=== PATIENT | female | born 1950 | race Caucasian/White ===

== ENCOUNTER 2020-02-27 17:18 | Inpatient (IN) | payer MEDICARE, OTHER ==
[2020-02-27 18:22] LABS: Hematocrit 43.3 % (35-47); Hemoglobin 13.8 gm/dl (12.0-16.0); Mean Cell Volume 97.1 fl (78-100); Mean Corpuscular Hemoglobin 30.9 pg (26-32); Mean Corpuscular Hgb Concent. 31.9 g/dl (32-36); Mean Platelet Volume 12.3 fl (7.5-11.0); Platelet Count 159 K/mm3 (150-450); Red Blood Count 4.46 M/mm3 (4.1-5.4); Red Cell Distribution Width 14.8 % (11.5-14.0)
[2020-02-27 18:28] LABS: ALBUMIN 3.5 g/dL (3.5-5.0); ALKALINE PHOSPHATASE 63 U/L (38-126); ANION GAP 13.7 MEQ/L (5-15); BLOOD UREA NITROGEN 19 mg/dL (7-17); CHLORIDE 97 mmol/L (98-107); Calcium 8.7 mg/dL (8.4-10.2); Carbon Dioxide 23 mmol/L (22-30); Creatinine 1 0.68 mg/dL (0.52-1.04); EST GLOMERULAR FILTRATION RATE > 60.0 ML/MIN; Glucose 135 mg/dL (74-106); Potassium 4.1 mmol/L (3.5-5.1); SGOT/AST 74 U/L (14-36); SGPT/ALT 23 U/L (0-35); SODIUM 129 mmol/L (137-145); Total Protein 6.5 g/dL (6.3-8.2)
[2020-02-27 20:06] LABS: ATYPICAL LYMPHS 2 %; BAND 2 % (0.0-2.0); Lymphocytes 17 % (24-44); Monocyte 10 % (0.0-12.0); Neutrophils 69 % (36.0-66.0); Platelet Estimate NORMAL (NORMAL); Total Cells Counted 100
--- NOTE | 2020-02-27 21:47 | XRAY ---
Exam: AP chest film on [facility] from 02/27/2020. Comparison: None. Indication: Covid-19 positive, shortness of breath. Findings: The transverse heart size is normal. Calcification of the aortic knob and mild tortuosity of the descending thoracic aorta are seen. There is average inflation of the lungs. Mild left perihilar and bibasilar hazy infiltrates are seen consistent with pneumonia. Respiratory tubing overlies the right upper lung field. There is no pneumothorax or pleural effusion. A small calcified granuloma is seen at the lateral right lung base. No acute osseous process is seen. Impression: 1. Hazy left perihilar and bibasilar air space infiltrates are seen consistent with bilateral pneumonia.
--- NOTE | 2020-02-27 22:00 | ERPHSYRPT ---
- History of Present Illness Time Seen by Provider: 02/27/20 17:30 Source: patient Exam Limitations: no limitations Patient Subjective Stated Complaint: pt here for sob, weakness, cough, she is covid postive last week, Triage Nursing Assessment: pt arrived per car, shaky, face mask in place, helped to wc, alert, resp shallow, dry cough, abd soft, pt placed on 2 l nc Physician History: Patient is a 69-year-old female, diagnosed with COVID last week presents to our ED with progressive shortness of breath cough and feeling "shaky". Patient hypoxic in triage. Patient admits to persistent cough. No fever. No nausea or vomiting. No diarrhea. No rash. Symptoms have been progressive. Patient has no chest pain. Symptoms are mild to moderate in intensity. No specific worsening or improving factors. Patient voices no other complaints or concerns at this time. Timing/Duration: week(s) Severity: moderate Modifying Factors: Improves With: nothing Associated Symptoms: shortness of breath, cough, No nausea, No vomiting, No heartburn, No diaphoresis, No chills, No headaches, No syncope, No seizure Allergies/Adverse Reactions: Sulfa (Sulfonamide Antibiotics) Allergy (Mild, Verified 02/27/20 17:35) Hives pt states really unknown meperidine HCl [From Demerol] Adverse Reaction (Mild, Verified 02/27/20 17:35) Nausea and Vomiting Home Medications: Aspirin 81 gm Chew [Baby Aspirin 81 mg Chew] 325 mg PO DAILY 12/13/14 [History] Calcium Carbonate/Vitamin D3 [Caltrate 600 + D Tablet] 1 each PO BID 12/13/14 [History] Denosumab 60 mg [Prolia 60 mg Injection] 60 mg SQ UD 12/13/14 [History] Lorazepam 1 mg [Ativan 1 MG] 1 mg PO HS 12/13/14 [History] Metformin HCl 500 mg [Glucophage 500 MG] 500 mg PO DAILY 12/13/14 [History] Quinapril HCl [Accupril] 40 mg PO DAILY 12/13/14 [History] Amlodipine Besylate 5 mg [Norvasc 5 mg] 5 mg PO DAILY 06/24/16 [History] Acetaminophen [Tylenol Extra Strength] 1,000 mg PO BID 12/23/16 [History] Simvastatin [Zocor] 10 mg PO HS 06/29/17 [History] Esomeprazole Magnesium [Nexium] 40 mg PO DAILY PRN 07/14/19 [History] Hx Influenza Vaccination/Date Given: Yes Hx Pneumococcal Vaccination/Date Given: Yes Immunizations Up to Date: Yes Travel Risk - International Travel Have you traveled outside of the country in past 3 weeks: No - Coronavirus Screening Are you exhibiting any of the following symptoms?: Yes Symptoms: Fever, Cough: New Onset, Shortness of Breath, Headaches/Body Ac hes/Fatigue Close contact with a COVID-19 positive Pt in past 14-21 Days: Yes - Review of Systems Constitutional: No Symptoms, No Fever, No Chills Eyes: No Symptoms Ears, Nose, & Throat: No Symptoms Respiratory: No Symptoms, No Cough, No Dyspnea Cardiac: No Symptoms, No Chest Pain, No Edema, No Syncope Abdominal/Gastrointestinal: No Symptoms, No Abdominal Pain, No Nausea, No Vomiting, No Diarrhea Genitourinary Symptoms: No Symptoms, No Dysuria Musculoskeletal: No Symptoms, No Back Pain, No Neck Pain Skin: No Symptoms, No Rash Neurological: No Symptoms, No Dizziness, No Focal Weakness, No Sensory Changes Psychological: No Symptoms Endocrine: No Symptoms Hematologic/Lymphatic: No Symptoms Immunological/Allergic: No Symptoms All Other Systems: Reviewed and Negative - Past Medical History Pertinent Past Medical History: Yes Neurological History: No Pertinent History ENT History: No Pertinent History Cardiac History: High Cholesterol, Hypertension Respiratory History: No Pertinent History Endocrine Medical History: Diabetes Type II Musculoskeletal History: Osteoarthritis GI Medical History: No Pertinent History History: No Pertinent History Psycho-Social History: No Pertinent History Female Reproductive Disorders: No Pertinent History Other Medical History: OA of B knees. spinal stenosis - Past Surgical History Past Surgical History: Yes Neuro Surgical History: No Pertinent History Cardiac: No Pertinent History Respiratory: No Pertinent History Gastrointestinal: Appendectomy Genitourinary: No Pertinent History Musculoskeletal: No Pertinent History Female Surgical History: No Pertinent History Other Surgical History: bilateral ingrown toenail both great toes. D&C. endoscopy colonoscopy. EGD. left total knee replacement - Social History Smoking Status: Never smoker Exposure to second hand smoke: No Drug Use: none Patient Lives Alone: No - Female History Hx Last Menstrual Period: post Hx Now: No - Nursing Vital Signs Nursing Vital Signs: Initial Vital Signs Temperature 98.4 F 02/27/20 17:19 Pulse Rate 75 02/27/20 17:19 Respiratory Rate 24 02/27/20 17:19 Blood Pressure 147/67 02/27/20 17:19 O2 Sat by Pulse Oximetry 89 L 02/27/20 17:19 Pain Scale Pain Intensity 3 - Physical Exam General Appearance: no apparent distress, alert Eye Exam: PERRL/EOMI, eyes nml inspection Ears, Nose, Throat Exam: normal ENT inspection, TMs normal, pharynx normal, moist mucous membranes Neck Exam: normal inspection, non-tender, supple, full range of motion Respiratory Exam: normal breath sounds, lungs clear, No respiratory distress Cardiovascular Exam: regular rate/rhythm, normal heart sounds, normal peripheral pulses Gastrointestinal/Abdomen Exam: soft, normal bowel sounds, No tenderness, No mass Back Exam: normal inspection, normal range of motion, No CVA tenderness, No vertebral tenderness Extremity Exam: normal inspection, normal range of motion, pelvis stable Neurologic Exam: alert, oriented x 3, cooperative, normal mood/affect, nml cerebellar function, nml station & gait, sensation nml, No motor deficits Skin Exam: normal color, warm, dry, No rash Lymphatic Exam: No adenopathy SpO2 Interpretation: hypoxic SpO2: 93 O2 Delivery: Room Air - Course Nursing assessment & vital signs reviewed: Yes EKG Interpreted by Me: RATE (72), NORMAL AXIS, NORMAL INTERVALS, NORMAL QRS (Poor quality EKG. EKG abnormal due to tremor back.), Other - Radiology Exams Chest X-ray Interpretation: Teleradiologist Report (Hazy left perihilar and bibasilar airspace infiltrates are seen consistent with bilateral pneumonia.) Ordered Tests: Active Orders 24 hr Category Date Time Status Resident Inspector STAT Care 02/27/20 18:18 Active EKG-ER Only STAT Care 02/27/20 18:18 Active IV Insertion STAT Care 02/27/20 18:18 Active Oxygen-ED Only Nasal Cannula 4 lpm Care 02/27/20 18:22 Active Pulse Oximetry (ED) STAT Care 02/27/20 18:18 Active CHEST 1 VIEW (PORTABLE) Stat Exams 02/27/20 18:16 Completed BLOOD CULTURE Stat Lab 02/27/20 22:09 Ordered BNP [NT PRO BNP] Stat Lab 02/27/20 22:07 Ordered CBC W DIFF Stat Lab 02/27/20 18:15 Completed CMP Stat Lab 02/27/20 18:15 Completed Lactic Acid Stat Lab 02/27/20 22:08 Ordered Manual Differential NC Stat Lab 02/27/20 18:15 Completed TROPONIN Q3H Lab 02/27/20 18:30 Completed TROPONIN Q3H Lab 02/27/20 22:00 Ordered Transfer Order Routine Transfer 02/27/20 Ordered Lab/Rad Data: Laboratory Result Diagrams 02/27/20 18:15 02/27/20 18:15 Laboratory Results 02/27/20 02/27/20 02/27/20 Range/Units 18:30 18:15 18:15 WBC 7.0 (4.0-10.5) K/mm3 RBC 4.46 (4.1-5.4) M/mm3 Hgb 13.8 (12.0-16.0) gm/dl Hct 43.3 (35-47) % MCV 97.1 (78-100) fl MCH 30.9 (26-32) pg MCHC 31.9 L (32-36) g/dl RDW 14.8 H (11.5-14.0) % Plt Count 159 (150-450) K/mm3 MPV 12.3 H (7.5-11.0) fl Segmented Neutrophils 69 H (36.0-66.0) % Band Neutrophils 2 (0.0-2.0) % Lymphocytes (Manual) 17 L (24-44) % Monocytes (Manual) 10 (0.0-12.0) % Atypical Lymphocytes 2 % Platelet Estimate NORMAL (NORMAL) RBC Morphology NORMAL Sodium 129 L (137-145) mmol/L Potassium 4.1 (3.5-5.1) mmol/L Chloride 97 L (98-107) mmol/L Carbon Dioxide 23 (22-30) mmol/L Anion Gap 13.7 (5-15) MEQ/L BUN 19 H (7-17) mg/dL Creatinine 0.68 (0.52-1.04) mg/dL Estimated GFR > 60.0 ML/MIN Glucose 135 H (74-106) mg/dL Calcium 8.7 (8.4-10.2) mg/dL Total Bilirubin 0.60 (0.2-1.3) mg/dL AST 74 H (14-36) U/L ALT 23 (0-35) U/L Alkaline Phosphatase 63 (38-126) U/L Troponin I 0.015 (0.000-0.034) ng/mL Serum Total Protein 6.5 (6.3-8.2) g/dL Albumin 3.5 (3.5-5.0) g/dL - Progress Progress: improved Progress Note: 02/27/20 22:15 Patient reassessed. She feels better after receiving nasal cannula oxygen. However upon removal patient immediately desaturates. Work-up reveals bilateral pneumonia likely due to COVID maintained. Case discussed with Dr. Thorne. Dr. Thorne requested adding BNP lactic acid and blood culture. These were added as requested. We will admit patient to the COVID unit for further evaluation and treatment. Plan of care discussed with patient. She agrees to admission to [facility] for further evaluation and treatment. Discussed with Dr.: Other (Case discussed with Dr. Thorne who accepts admission to observation.) Counseled pt/family regarding: lab results, diagnosis, need for follow-up, rad results - Departure Departure Disposition: In-patient Admission Clinical Impression: COVID-19, Hypoxia, Bilateral pneumonia Condition: Stable Critical Care Time: No Referrals: TAYLOR COLE [Primary Care Provider] -
[2020-02-27] MEDS ORDERED: REMDESIVIR IV ONE (23:13)
[2020-02-27] MEDS ORDERED: solu-MEDROL 125 MG IV ONE (23:14)
[2020-02-27] MEDS ORDERED: Ativan 2 MG/1 ML VIAL IV PRN (23:24)
[2020-02-27] MEDS ORDERED: TYLENOL 325 MG PO PRN (23:25)
[2020-02-27] MEDS ORDERED: Lactated Ringers 1,000 ML IV SCH (23:30)
[2020-02-27 23:43] LABS: TROPONIN 0.015 ng/mL (0.000-0.034)
[2020-02-27] MEDS ORDERED: Sodium Chloride 0.9% 250 ML 250 ML IV ONE (23:44)
[2020-02-27] MEDS ORDERED: REMDESIVIR 200 MG in Sodium Chloride 0.9% 500 ML 250 ML IV SCH (23:45)
[2020-02-28 06:10] LABS: Hemoglobin 12.5 gm/dl (12.0-16.0); Mean Cell Volume 97.5 fl (78-100); Mean Corpuscular Hemoglobin 31.3 pg (26-32); Mean Corpuscular Hgb Concent. 32.1 g/dl (32-36); Mean Platelet Volume 12.3 fl (7.5-11.0); Platelet Count 143 K/mm3 (150-450); Red Cell Distribution Width 14.6 % (11.5-14.0)
[2020-02-28 06:38] LABS: ALKALINE PHOSPHATASE 55 U/L (38-126); ANION GAP 11.1 MEQ/L (5-15); BLOOD UREA NITROGEN 16 mg/dL (7-17); CHLORIDE 99 mmol/L (98-107); Carbon Dioxide 22 mmol/L (22-30); EST GLOMERULAR FILTRATION RATE > 60.0 ML/MIN; Glucose 165 mg/dL (74-106); NT PRO BNP 1670 pg/mL (0-900); Potassium 4.1 mmol/L (3.5-5.1); SGOT/AST 73 U/L (14-36); SGPT/ALT 24 U/L (0-35); SODIUM 129 mmol/L (137-145); Total Protein 5.8 g/dL (6.3-8.2)
[2020-02-28 08:07] LABS: Lymphocytes 13 % (24-44); Neutrophils 87 % (36.0-66.0); Total Cells Counted 100
[2020-02-28 08:08] LABS: Platelet Estimate NORMAL (NORMAL)
[2020-02-28] MEDS ORDERED: Sodium Chloride 0.9% 10 ML FLUSH Syringe IV PRN (09:17)
[2020-02-28] MEDS: solu-MEDROL 125 MG IV SCH (09:24)
[2020-02-28] MEDS: Protonix 40MG Tablet PO SCH (09:25)
[2020-02-28] MEDS: Accupril 10MG Tablet PO SCH (09:25)
[2020-02-28] MEDS: ENOXAPARIN SODIUM SQ SCH (09:26)
[2020-02-28] MEDS: NORVASC 5 MG PO SCH (09:26)
[2020-02-28] MEDS: Glucophage 500 MG PO SCH (09:26)
[2020-02-28] MEDS ORDERED: REMDESIVIR IV SCH (10:00)
[2020-02-28] MEDS: TYLENOL EXTRA STRENGTH 500 MG PO SCH ×2 (11:39→21:01)
[2020-02-28] MEDS: Calcium 500MG W/Vit D Tablet PO SCH ×2 (12:46→21:01)
[2020-02-28] MEDS: Ecotrin 325 MG PO SCH (12:46)
[2020-02-28] MEDS: REMDESIVIR 100 MG in Sodium Chloride 0.9% 100 ML IVPB 100 ML IV SCH (15:02)
[2020-02-28] MEDS: Sodium Chloride 0.9% 10 ML FLUSH Syringe IV SCH ×2 (15:02→21:02)
[2020-02-28] MEDS: PHENERGAN WITH CODEINE SYRUP PO PRN ×2 (17:26→22:38)
[2020-02-28] MEDS: Zocor 10MG PO SCH (21:01)
[2020-02-28] MEDS: Ativan 1 MG PO SCH (21:01)
[2020-02-29 05:47] LABS: Hematocrit 40.4 % (35-47); Hemoglobin 12.7 gm/dl (12.0-16.0); Mean Cell Volume 98.3 fl (78-100); Mean Corpuscular Hemoglobin 30.9 pg (26-32); Mean Corpuscular Hgb Concent. 31.4 g/dl (32-36); Mean Platelet Volume 11.9 fl (7.5-11.0); Platelet Count 176 K/mm3 (150-450); Red Blood Count 4.11 M/mm3 (4.1-5.4); Red Cell Distribution Width 14.6 % (11.5-14.0); White Blood Count 6.4 K/mm3 (4.0-10.5)
[2020-02-29 06:04] LABS: ANION GAP 11.8 MEQ/L (5-15); BLOOD UREA NITROGEN 21 mg/dL (7-17); CHLORIDE 101 mmol/L (98-107); Calcium 8.2 mg/dL (8.4-10.2); Carbon Dioxide 25 mmol/L (22-30); Creatinine 1 0.66 mg/dL (0.52-1.04); EST GLOMERULAR FILTRATION RATE > 60.0 ML/MIN; Glucose 183 mg/dL (74-106); SODIUM 133 mmol/L (137-145)
[2020-02-29] MEDS: PHENERGAN WITH CODEINE SYRUP PO PRN ×4 (07:35→22:35)
[2020-02-29] MEDS: Sodium Chloride 0.9% 10 ML FLUSH Syringe IV SCH ×3 (07:58→22:46)
[2020-02-29] MEDS: TYLENOL EXTRA STRENGTH 500 MG PO SCH ×2 (09:48→22:34)
[2020-02-29] MEDS: NORVASC 5 MG PO SCH (09:49)
[2020-02-29] MEDS: Calcium 500MG W/Vit D Tablet PO SCH ×2 (09:49→22:34)
[2020-02-29] MEDS: Protonix 40MG Tablet PO SCH (09:49)
[2020-02-29] MEDS: Ecotrin 325 MG PO SCH (09:49)
[2020-02-29] MEDS: Accupril 10MG Tablet PO SCH (09:49)
[2020-02-29] MEDS: solu-MEDROL 125 MG IV SCH (09:50)
[2020-02-29] MEDS: ENOXAPARIN SODIUM SQ SCH (09:50)
[2020-02-29] MEDS: Glucophage 500 MG PO SCH (09:50)
[2020-02-29] MEDS ORDERED: Glucophage 500 MG PO SCH (10:00)
[2020-02-29] MEDS: REMDESIVIR 100 MG in Sodium Chloride 0.9% 100 ML IVPB 100 ML IV SCH (15:30)
[2020-02-29] MEDS: Ativan 1 MG PO SCH (22:34)
[2020-02-29] MEDS: Zocor 10MG PO SCH (22:34)
[2020-02-29] MEDS: HUMALOG SQ PRN (22:35)
[2020-03-01 05:36] LABS: Hemoglobin 12.7 gm/dl (12.0-16.0); Mean Cell Volume 100.2 fl (78-100); Mean Corpuscular Hemoglobin 31.1 pg (26-32); Mean Platelet Volume 11.6 fl (7.5-11.0); Platelet Count 207 K/mm3 (150-450); Red Blood Count 4.09 M/mm3 (4.1-5.4); Red Cell Distribution Width 14.4 % (11.5-14.0); White Blood Count 9.3 K/mm3 (4.0-10.5)
[2020-03-01] MEDS: PHENERGAN WITH CODEINE SYRUP PO PRN ×4 (06:00→22:07)
[2020-03-01 06:05] LABS: ANION GAP 10.7 MEQ/L (5-15); Potassium 4.1 mmol/L (3.5-5.1)
[2020-03-01] MEDS: Sodium Chloride 0.9% 10 ML FLUSH Syringe IV SCH ×3 (08:09→21:43)
[2020-03-01] MEDS: Glucophage 500 MG PO SCH (09:55)
[2020-03-01] MEDS: NORVASC 5 MG PO SCH (09:55)
[2020-03-01] MEDS: Accupril 10MG Tablet PO SCH (09:55)
[2020-03-01] MEDS: Ecotrin 325 MG PO SCH (09:55)
[2020-03-01] MEDS: Protonix 40MG Tablet PO SCH (09:55)
[2020-03-01] MEDS: TYLENOL EXTRA STRENGTH 500 MG PO SCH ×2 (09:55→21:43)
[2020-03-01] MEDS: solu-MEDROL 125 MG IV SCH (09:56)
[2020-03-01] MEDS: ENOXAPARIN SODIUM SQ SCH (09:56)
[2020-03-01] MEDS: Calcium 500MG W/Vit D Tablet PO SCH ×2 (09:56→21:43)
[2020-03-01] MEDS: REMDESIVIR 100 MG in Sodium Chloride 0.9% 100 ML IVPB 100 ML IV SCH (15:24)
[2020-03-01] MEDS: Ativan 1 MG PO SCH (21:43)
[2020-03-01] MEDS: Zocor 10MG PO SCH (21:44)
[2020-03-01] MEDS: HUMALOG SQ PRN (22:09)
[2020-03-02] MEDS: PHENERGAN WITH CODEINE SYRUP PO PRN ×2 (05:41→10:05)
[2020-03-02 06:14] LABS: SGOT/AST 42 U/L (14-36); SGPT/ALT 29 U/L (0-35)
[2020-03-02] MEDS: Sodium Chloride 0.9% 10 ML FLUSH Syringe IV SCH ×3 (07:52→21:38)
[2020-03-02] MEDS: ENOXAPARIN SODIUM SQ SCH (09:55)
[2020-03-02] MEDS: Calcium 500MG W/Vit D Tablet PO SCH ×2 (09:55→21:15)
[2020-03-02] MEDS: Ecotrin 325 MG PO SCH (09:55)
[2020-03-02] MEDS: Glucophage 500 MG PO SCH (09:56)
[2020-03-02] MEDS: NORVASC 5 MG PO SCH (09:56)
[2020-03-02] MEDS: Protonix 40MG Tablet PO SCH (09:57)
[2020-03-02] MEDS: Accupril 10MG Tablet PO SCH (09:57)
[2020-03-02] MEDS: TYLENOL EXTRA STRENGTH 500 MG PO SCH ×2 (09:57→21:15)
[2020-03-02] MEDS: solu-MEDROL 125 MG IV SCH (09:57)
[2020-03-02] MEDS: REMDESIVIR 100 MG in Sodium Chloride 0.9% 100 ML IVPB 100 ML IV SCH (14:58)
[2020-03-02] MEDS: HUMALOG SQ PRN ×2 (17:30→21:40)
[2020-03-02] MEDS: Zocor 10MG PO SCH (21:15)
[2020-03-02] MEDS: Ativan 1 MG PO SCH (21:15)
[2020-03-03] MEDS: Sodium Chloride 0.9% 10 ML FLUSH Syringe IV SCH ×3 (06:18→21:37)
[2020-03-03] MEDS: NORVASC 5 MG PO SCH (10:13)
[2020-03-03] MEDS: TYLENOL EXTRA STRENGTH 500 MG PO SCH ×2 (10:13→21:37)
[2020-03-03] MEDS: Ecotrin 325 MG PO SCH (10:14)
[2020-03-03] MEDS: Protonix 40MG Tablet PO SCH (10:15)
[2020-03-03] MEDS: Accupril 10MG Tablet PO SCH (10:15)
[2020-03-03] MEDS: Glucophage 500 MG PO SCH (10:15)
[2020-03-03] MEDS: solu-MEDROL 125 MG IV SCH (10:15)
[2020-03-03] MEDS: Calcium 500MG W/Vit D Tablet PO SCH ×2 (10:15→21:36)
[2020-03-03] MEDS: ENOXAPARIN SODIUM SQ SCH (10:15)
[2020-03-03] MEDS: PHENERGAN WITH CODEINE SYRUP PO PRN ×2 (10:34→21:38)
[2020-03-03] MEDS ORDERED: SENOKOT 8.6 MG PO PRN (10:55)
[2020-03-03] MEDS: LACTULOSE 20 GM/30ML UD CUP PO SCH (11:32)
[2020-03-03] MEDS: HUMALOG SQ PRN ×2 (17:11→21:37)
[2020-03-03] MEDS: Ativan 1 MG PO SCH (21:36)
[2020-03-03] MEDS: Zocor 10MG PO SCH (21:37)
[2020-03-04] MEDS: PHENERGAN WITH CODEINE SYRUP PO PRN (04:38)
[2020-03-04] MEDS: Sodium Chloride 0.9% 10 ML FLUSH Syringe IV SCH (04:38)
[2020-03-04 08:02] LABS: Hematocrit 41.9 % (35-47); Hemoglobin 13.4 gm/dl (12.0-16.0); Mean Cell Volume 98.1 fl (78-100); Mean Corpuscular Hemoglobin 31.4 pg (26-32); Mean Platelet Volume 10.8 fl (7.5-11.0); Platelet Count 291 K/mm3 (150-450); Red Blood Count 4.27 M/mm3 (4.1-5.4); Red Cell Distribution Width 13.9 % (11.5-14.0)
[2020-03-04 08:13] LABS: ANION GAP 8.6 MEQ/L (5-15); BLOOD UREA NITROGEN 23 mg/dL (7-17); CHLORIDE 102 mmol/L (98-107); Calcium 8.7 mg/dL (8.4-10.2); Carbon Dioxide 30 mmol/L (22-30); Creatinine 1 0.58 mg/dL (0.52-1.04); EST GLOMERULAR FILTRATION RATE > 60.0 ML/MIN; Glucose 121 mg/dL (74-106); Potassium 3.9 mmol/L (3.5-5.1); SODIUM 137 mmol/L (137-145)
--- NOTE | 2020-03-04 09:26 | XRAY ---
Indication: Short of breath and cough. Positive Covid 19. Comparison: February 27, 2020. Portable chest again demonstrates patchy bilateral airspace disease again without consolidation/large effusion. Very minimal clearing seen right base. Heart is not enlarged. No new cardiopulmonary abnormalities.
[2020-03-04] MEDS: TYLENOL EXTRA STRENGTH 500 MG PO SCH (09:48)
[2020-03-04] MEDS: Calcium 500MG W/Vit D Tablet PO SCH (09:48)
[2020-03-04] MEDS: Protonix 40MG Tablet PO SCH (09:48)
[2020-03-04] MEDS: Accupril 10MG Tablet PO SCH (09:48)
[2020-03-04] MEDS: Glucophage 500 MG PO SCH (09:48)
[2020-03-04] MEDS: Ecotrin 325 MG PO SCH (09:48)
[2020-03-04] MEDS: LACTULOSE 20 GM/30ML UD CUP PO SCH (09:49)
[2020-03-04] MEDS: NORVASC 5 MG PO SCH (09:49)
[2020-03-04] MEDS: ENOXAPARIN SODIUM SQ SCH (09:49)
[2020-03-04] MEDS: solu-MEDROL 125 MG IV SCH (09:50)
[2020-03-04 11:38] VITALS: BP 139/75; PULSE 59; O2SAT 94
--- NOTE | 2020-03-04 14:30 | HP ---
CHIEF COMPLAINT: Severe shortness of breath, fever, non-COVID. HISTORY OF PRESENT ILLNESS: The patient is a 69 year old white female who had been in earlier and tested positive for COVID. She is short of breath and instructed to get an O2 monitor by someone and O2 saturations were in the high 70's. She was then brought to the emergency room. She has had COVID since 02/19/2020 or 02/20/2020. She had no diarrhea. No nausea or vomiting. No fever. No chest pain. Just severe shortness of breath which has progressively gotten worse. MEDICATIONS: Tylenol PRN, potassium 500 q.d,, insulin 10 units h.s., Norvasc 5 q.d., Protonix q.d. ALLERGIES: SULFA. DEMEROL. PHYSICAL EXAMINATION: The patient is alert, orientated, short of breath and now in physical distress. Respiratory rate 30, temperature 99F, pulse 110. HEENT: Pupils equal and reactive to light. NECK: Supple without adenopathy. CHEST: Wheezing bilateral. CVS: Tachycardic. No murmurs or gallops. EXTREMITIES: Lower extremities the patient has severe degenerative changes both legs, some peripheral large veins. History of recent right knee replacement. IMPRESSION/PLAN: The patient on chest x-ray has bilateral infiltrates. It looks like COVID pneumonia with a normal white count, mildly febrile, hypoxic without 4 liters of oxygen. She will be started on Decadron, Remdesivir and O2, labs to be followed. She will be watched carefully tonight. Decisions will be made in the morning. PROGNOSIS: Guarded.
--- NOTE | 2020-03-18 10:53 | DS ---
ADMISSION DIAGNOSES: 1) COVID pneumonia. 2) Hypoxia. 3) Degenerative arthritis of the knees. 4) Obesity. 5) Hypertension. 6) Diabetes mellitus. 7) Gastroesophageal reflux disease. DISCHARGE DIAGNOSES: 1) COVID PNEUMONIA. 2) HYPOXIA. 3) DEGENERATIVE ARTHRITIS OF THE KNEES. 4) OBESITY. 5) HYPERTENSION. 6) DIABETES MELLITUS. 7) GASTROESOPHAGEAL REFLUX DISEASE. HISTORY: The patient is a 69 year old white female who is usually fairly healthy except for arthritis of the knees. She has been in quarantine for the last three months, does not go out of the house. Pretty much afraid of COVID. She started running a fever and became short of breath. She was brought to the emergency room and diagnosed with COVID and sent home. She became extremely hypoxic in the 70's and her brought her back into emergency room. She has had COVID since February 18 or . She has had no diarrhea, nausea or vomiting. MEDICATIONS: Medications before admission were: Tylenol, potassium, insulin 10 units of Levemir h.s., Norvasc 5 and Protonix. ALLERGIES: SULFA. MEPERIDINE. PHYSICAL EXAMINATION: On discharge showed that she has markedly improved. She is alert, orientated, very pleasant, educated woman. HEENT: Normal. CHEST: Few crackles. CVS: Irregular/irregular beat. No murmurs. ABDOMEN: Obese. No tenderness or organomegaly. EXTREMITIES: Varicose veins, trace edema. HOSPITAL COURSE: The patient the first night was rather exciting. She was on 6 liters to keep her O2 above low 80's. However, when the Decadron and Remdesivir seemed to kick in she gradually improved. She was put on Lovenox prophylactically since she was not getting up the first few days. She was continued on home medications. CBC and electrolytes on 03/02/2020 were normal. She ran fever off and on but that was gone the last four days. She was stable enough to be discharged to be discharged on 03/04/2020 after six days of treatment. She was sitting in a chair walking about with no severe problems. She is on O2 at 2 liters. She is to have home health care, oxygen at 2 liters or 3 liters if needed. She has a phone numbers to call if she any questions. Stay in isolation although really she has had the disease now for two weeks. She may have residual from the bilateral COVID pneumonia. PROGNOSIS: Good. ADDENDUM: The patient ten days after discharge had pulmonary emboli and is in [facility] at this time.
== END 2020-03-04 13:50 | disposition home or self-care (01) | DRG 177 ==
LOC: ED 17:18 → MED SURG 22:53 → OBSVTOIN 22:53
PROVIDERS: ADMIT Family Medicine; ATTEND Family Medicine
DX: U07.1 COVID-19 (principal); J12.89 Other viral pneumonia; E87.1 Hypo-osmolality and hyponatremia; R53.1 Weakness; Z79.899 Other long term (current) drug therapy; R51 Headache; I10 Essential (primary) hypertension; E78.00 Pure hypercholesterolemia, unspecified; M17.0 Bilateral primary osteoarthritis of knee; E86.0 Dehydration; E11.9 Type 2 diabetes mellitus without complications; R09.02 Hypoxemia; Z86.718 Personal history of other venous thrombosis and embolism; E66.01 Morbid (severe) obesity due to excess calories; K21.9 Gastro-esophageal reflux disease without esophagitis
CPT/HCPCS: 36000; 36415; 71045; 80048; 80051; 80053; 82962; 83605; 83880; 84450; 84460; 84484; 85025; 85027; 87040; 93005; 93041; 94760; 94762; 99284; J1650; J1817; J2060; J2930; A9270-GY

== ENCOUNTER 2020-03-14 14:27 | Emergency (ER) | payer MEDICARE, OTHER ==
[2020-03-14] MEDS ORDERED: Sodium Chloride 0.9% 1000 ML 1,000 ML IV STA (14:44)
[2020-03-14] MEDS ORDERED: Sodium Chloride 0.9% 1000 ML 0 ML ONE (14:45)
[2020-03-14] MEDS ORDERED: DECADRON 10MG INJ. ONE (14:45)
[2020-03-14] MEDS ORDERED: DECADRON 10MG INJ. IV ONE (14:45)
[2020-03-14] MEDS ORDERED: Zofran 4 MG/2 ML VIAL IV ONE (14:52)
[2020-03-14] MEDS ORDERED: Zofran 4 MG/2 ML VIAL ONE (14:53)
--- NOTE | 2020-03-14 14:55 | ERPHSYRPT ---
- History of Present Illness Time Seen by Provider: 03/14/20 14:40 Source: patient Exam Limitations: clinical condition Patient Subjective Stated Complaint: Pt states "I was released a week ago from the covid unit and today I fell and I am not sure if I lost consciousness or not." Triage Nursing Assessment: Pt presented alert and oriented X 3, skin pwd. pt able to speak in 3 to 4 word sentences pt tachypneic, on non rebreather Physician History: Patient is a 69-year-old female COVID positive patient presents to our ED via EMS for evaluation of syncope shortness of breath and hypoxia. Patient was diagnosed with COVID 18 days ago on February 25, 2020. Family reports that patient was found on the ground. The duration of time on the ground is unknown. Upon EMSs arrival patient was found to be hypoxic at 80%. She was placed on a nonrebreather at 15 L. O2 sat increased to 93%. Patient was tachypneic and tachycardic. Patient was released from our COVID unit approximately 1 week ago. She was prescribed home O2. Patient has been using her oxygen at home as recommended. Recommended dose is 2 L/min. She denies pain. No obvious signs of trauma. HPI limited due to patient's condition. Symptoms are moderate in intensity. No specific worsening or improving factors. Patient voices no other complaints at this time. Timing/Duration: today Severity: moderate Modifying Factors: Improves With: nothing Associated Symptoms: nausea, shortness of breath, diaphoresis, syncope, No vomiting, No abdominal pain, No chest pain, No rash Allergies/Adverse Reactions: Sulfa (Sulfonamide Antibiotics) Allergy (Mild, Verified 02/27/20 17:35) Hives pt states really unknown meperidine HCl [From Demerol] Adverse Reaction (Mild, Verified 02/27/20 17:35) Nausea and Vomiting Home Medications: Aspirin 81 gm Chew [Baby Aspirin 81 mg Chew] 325 mg PO DAILY 12/13/14 [History] Calcium Carbonate/Vitamin D3 [Caltrate 600 Plus D3 Tablet] 1 each PO BID 5 [History] Denosumab 60 mg [Prolia 60 mg Injection] 60 mg SQ UD 12/13/14 [History] Lorazepam 1 mg [Ativan 1 MG] 1 mg PO HS 12/13/14 [History] Metformin HCl 500 mg [Glucophage 500 MG] 500 mg PO DAILY 12/13/14 [History] Quinapril HCl [Accupril] 40 mg PO DAILY 12/13/14 [History] Amlodipine Besylate 5 mg [Norvasc 5 mg] 5 mg PO DAILY 06/24/16 [History] Acetaminophen [Tylenol Extra Strength] 1,000 mg PO BID 12/23/16 [History] Simvastatin [Zocor] 10 mg PO HS 06/29/17 [History] Esomeprazole Magnesium [Nexium] 40 mg PO DAILY PRN 07/14/19 [History] Hx Tetanus, Diphtheria Vaccination/Date Given: Yes Hx Influenza Vaccination/Date Given: Yes Hx Pneumococcal Vaccination/Date Given: Yes Immunizations Up to Date: Yes Travel Risk - International Travel Have you traveled outside of the country in past 3 weeks: No - Coronavirus Screening Are you exhibiting any of the following symptoms?: Yes Symptoms: Fever, Shortness of Breath Close contact with a COVID-19 positive Pt in past 14-21 Days: Yes - Review of Systems All Other Systems: Unable due to condition - Past Medical History Pertinent Past Medical History: Yes Neurological History: No Pertinent History ENT History: No Pertinent History Cardiac History: High Cholesterol, Hypertension Respiratory History: No Pertinent History Endocrine Medical History: Diabetes Type II Musculoskeletal History: Osteoarthritis GI Medical History: No Pertinent History History: No Pertinent History Psycho-Social History: No Pertinent History Female Reproductive Disorders: No Pertinent History Other Medical History: OA of B knees. spinal stenosis - Past Surgical History Past Surgical History: Yes Neuro Surgical History: No Pertinent History Cardiac: No Pertinent History Respiratory: No Pertinent History Gastrointestinal: Appendectomy Genitourinary: No Pertinent History Musculoskeletal: No Pertinent History Female Surgical History: No Pertinent History Other Surgical History: bilateral ingrown toenail both great toes. D&C. endoscopy colonoscopy. EGD. left total knee replacement - Social History Smoking Status: Never smoker Exposure to second hand smoke: No Drug Use: none Patient Lives Alone: No - Nursing Vital Signs Nursing Vital Signs: Initial Vital Signs Temperature 97.9 F 03/14/20 14:32 Pulse Rate 129 H 03/14/20 14:32 Respiratory Rate 28 H 03/14/20 14:32 Blood Pressure 90/60 03/14/20 14:32 O2 Sat by Pulse Oximetry 94 L 03/14/20 14:32 Pain Scale Pain Intensity 0 - Physical Exam General Appearance: no apparent distress, alert Eye Exam: PERRL/EOMI, eyes nml inspection Ears, Nose, Throat Exam: normal ENT inspection, TMs normal, pharynx normal, moist mucous membranes Neck Exam: normal inspection, non-tender, supple, full range of motion Respiratory Exam: normal breath sounds, respiratory distress, airway intact, diminished breath sounds, wheezing (Expiratory wheezing bilateral bases.) Cardiovascular Exam: regular rate/rhythm, normal heart sounds, normal peripheral pulses Gastrointestinal/Abdomen Exam: soft, normal bowel sounds, No tenderness, No mass Back Exam: normal inspection, normal range of motion, No CVA tenderness, No vertebral tenderness Extremity Exam: normal range of motion, pedal edema, swelling, No pelvis stable, No amputations, No calf tenderness, No penetrations, No parasthesia, No paralysis, No limited range of motion Neurologic Exam: alert, oriented x 3, cooperative, cw operator II-XII nml as tested Skin Exam: normal color, warm, dry, No rash Lymphatic Exam: No adenopathy SpO2 Interpretation: hypoxic SpO2: 94 O2 Delivery: Room Air - Course Nursing assessment & vital signs reviewed: Yes EKG Interpreted by Me: RATE, A-fib, NORMAL AXIS, NORMAL INTERVALS - Radiology Exams Chest X-ray Interpretation: Teleradiologist Report (Patchy bilateral airspace disease minimally improved in the right mid to upper lung with remaining lungs unchanged. Heart mediastinal structures within normal limits. No new cardiopulmonary abnormalities.) - CT Exams Head CT Interpretation: Tele-radiologist Report (Acute senile brain. Partial op acification of left mastoid air cells presumably inflammatory.) Chest CT Interpretation: Tele-radiologist Report (7 bilateral pulmonary emboli, diffuse bilateral patchy airspace disease without consolidation/effusion, incidental fatty liver and left renal cyst.) Ordered Tests: Active Orders 24 hr Category Date Time Status Knot Borer STAT Care 03/14/20 14:39 Completed EKG-ER Only STAT Care 03/14/20 14:38 Completed [place] [Catheter-[place]] STAT Care 03/14/20 15:00 Completed IV Insertion STAT Care 03/14/20 14:38 Completed CHEST 1 VIEW (PORTABLE) Stat Exams 03/14/20 14:40 Completed CHEST WITH CONTRAST [CT] Stat Exams 03/14/20 16:01 Completed HEAD WITHOUT CONTRAST [CT] Stat Exams 03/14/20 16:00 Completed ARTERIAL BLOOD GASES Urgent Lab 03/14/20 14:55 Completed BLOOD CULTURE Stat Lab 03/14/20 14:51 Received CBC W DIFF Stat Lab 03/14/20 14:51 Completed CK-Creatinine Phosphokinase Stat Lab 03/14/20 14:51 Completed CMP Stat Lab 03/14/20 14:51 Completed CULTURE,URINE Stat Lab 03/14/20 16:57 Received D-DIMER QUANTITATIVE Stat Lab 03/14/20 14:51 Completed ETHYL ALCOHOL Stat Lab 03/14/20 14:51 Completed Lactic Acid Stat Lab 03/14/20 14:55 Completed Lactic Acid Stat Lab 03/14/20 17:03 Completed MAGNESIUM Stat Lab 03/14/20 14:51 Completed Manual Differential NC Stat Lab 03/14/20 14:51 Completed NT PRO BNP Stat Lab 03/14/20 14:51 Completed TROPONIN Q3H Lab 03/14/20 14:51 Completed TROPONIN Q3H Lab 03/14/20 18:00 Completed UA W/RFX UR CULTURE Stat Lab 03/14/20 16:57 Completed Urine Triage Profile Stat Lab 03/14/20 17:00 Completed Oxygen High Flow per RT 35% RT 03/14/20 15:30 Completed Medication Summary Discontinued Medications Generic Name Dose Route Start Last Admin Trade Name Freq PRN Reason Stop Dose Admin Dexamethasone Sodium Phosphate 8 mg 03/14/20 14:45 03/14/20 14:47 Decadron 10mg Inj. IV 03/14/20 14:46 8 mg STAT ONE Administration Dexamethasone Sodium Phosphate Confirm 03/14/20 14:45 Decadron 10mg Inj. Administered 03/14/20 14:46 Dose 10 mg .ROUTE .STK-MED ONE Heparin Sodium (Beef Lung) Confirm 03/14/20 17:03 Heparin 5000 Units/0.5 Ml (High Risk Med) Administered 03/14/20 17:04 Dose 5,000 unit .ROUTE .STK-MED ONE Hydrocortisone Sodium Succinate 100 mg 03/14/20 17:28 03/14/20 17:33 Solu-Cortef 100mg IV 03/14/20 17:29 Not Given STAT ONE Sodium Chloride 1,000 mls @ 999 mls/hr 03/14/20 14:44 08/27/20 15:53 Sodium Chloride 0.9% 1000 Ml IV 03/14/20 15:44 Infused .Q1H1M STA Infusion Sodium Chloride Confirm 03/14/20 14:45 Sodium Chloride 0.9% 1000 Ml Administered 03/14/20 14:46 Dose 1,000 mls @ ud .ROUTE .STK-MED ONE Vancomycin HCl 1 gm in 200 mls @ 125 mls/hr 03/14/20 16:15 03/14/20 18:54 Vancomycin 1 Gram/200 Ml Bag IV 04/13/20 16:14 Infused Q12H MIKE Infusion Piperacillin Sod/Tazobactam 100 mls @ 200 mls/hr 03/14/20 16:11 03/14/20 16:55 Sod 3.375 gm/ Sodium Chloride IV 03/14/20 16:40 200 mls/hr STAT ONE Administration Sodium Chloride Confirm 03/14/20 16:29 Sodium Chloride 100ml Mini-Bag Plus Administered 03/14/20 16:30 Dose 100 mls @ ud IV .STK-MED ONE Sodium Chloride Confirm 03/14/20 17:04 Sodium Chloride 0.9% 1000 Ml Administered 03/14/20 17:05 Dose 1,000 mls @ ud .ROUTE .STK-MED ONE Heparin Sodium/Dextrose Confirm 03/14/20 17:04 Heparin 25,000 Units/D5w 250ml Premix Administered 03/14/20 17:05 Dose 25,000 units in 250 mls @ ud IV .STK-MED ONE Norepinephrine 4,000 mcg/ 504 mls @ 37.8 mls/hr 03/14/20 17:29 03/14/20 17:38 Dextrose IV 04/13/20 17:28 5 mcg/min .[id number] PRN 37.8 mls/hr SEVERE HYPOTENSION Administration Protocol 5 MCG/MIN Sodium Chloride 1,000 mls @ 100 mls/hr 03/14/20 19:30 03/14/20 19:28 Sodium Chloride 0.9% 1000 Ml IV 04/13/20 19:29 100 mls/hr .Q10H MIKE Administration Vancomycin HCl Confirm 03/14/20 16:29 Vancomycin 1 Gram/200 Ml Bag Administered 03/14/20 16:30 Dose 1 gm in 200 mls @ ud IV .STK-MED ONE Sodium Chloride Confirm 03/14/20 19:26 Sodium Chloride 0.9% 1000 Ml Administered 03/14/20 19:27 Dose 1,000 mls @ ud .ROUTE .STK-MED ONE Ondansetron HCl 4 mg 03/14/20 14:52 03/14/20 14:53 Zofran 4 Mg/2 Ml Vial IV 03/14/20 14:53 4 mg STAT ONE Administration Ondansetron HCl Confirm 03/14/20 14:53 Zofran 4 Mg/2 Ml Vial Administered 03/14/20 14:54 Dose 4 mg .ROUTE .STK-MED ONE Piperacillin Sod/Tazobactam Sod Confirm 03/14/20 16:28 Zosyn 3.375 Gm Vial Administered 03/14/20 16:29 Dose 3.375 gm IV .STK-MED ONE Lab/Rad Data: Laboratory Result Diagrams 03/14/20 14:51 03/14/20 14:51 Laboratory Results 03/14/20 03/14/20 03/14/20 Range/Units 18:00 17:03 17:00 WBC (4.0-10.5) K/mm3 RBC (4.1-5.4) M/mm3 Hgb (12.0-16.0) gm/dl Hct (35-47) % MCV (78-100) fl MCH (26-32) pg MCHC (32-36) g/dl RDW (11.5-14.0) % Plt Count (150-450) K/mm3 MPV (7.5-11.0) fl Segmented Neutrophils (36.0-66.0) % Band Neutrophils (0.0-2.0) % Lymphocytes (Manual) (24-44) % Monocytes (Manual) (0.0-12.0) % Eosinophils (Manual) (0.00-3.0) % Platelet Estimate (NORMAL) RBC Morphology D-Dimer (215-500) ng/mL Puncture Site pCO2 (35-45) mmHg pO2 (75-100) mmHg Base Excess (-2.0-2.0) O2 Saturation (94-100) g/dF ABG pH (7.35-7.45) ABG HCO3 (22-28) ABG O2 Sat (Measured) (95-100) % Justin Test A-a Gradient a/A Ratio Hemoglobin Carboxyhemoglobin (0.0-6.9) % THgb Methemoglobin (1.4-1.5) % Temperature C POC O2 Flow Rate % Sodium (137-145) mmol/L Potassium (3.5-5.1) mmol/L Chloride (98-107) mmol/L Carbon Dioxide (22-30) mmol/L Anion Gap (5-15) MEQ/L BUN (7-17) mg/dL Creatinine (0.52-1.04) mg/dL Estimated GFR ML/MIN Glucose (74-106) mg/dL Lactic Acid 2.8 H (0.4-2.0) Calcium (8.4-10.2) mg/dL Magnesium (1.6-2.3) mg/dL Total Bilirubin (0.2-1.3) mg/dL AST (14-36) U/L ALT (0-35) U/L Alkaline Phosphatase (38-126) U/L Creatine Kinase (30-135) U/L Troponin I 0.196 H* (0.000-0.034) ng/mL NT-Pro-B Natriuret Pep (0-900) pg/mL Serum Total Protein (6.3-8.2) g/dL Albumin (3.5-5.0) g/dL Urine Color (YELLOW) Urine Appearance (CLEAR) Urine pH (5-6) Ur Specific [place] (1.005-1.025) Urine Protein (Negative) Urine Ketones (NEGATIVE) Urine Blood (0-5) Rishi/ul Urine Nitrite (NEGATIVE) Urine Bilirubin (NEGATIVE) Urine Urobilinogen (0-1) mg/dL Ur Leukocyte Esterase (NEGATIVE) Urine WBC (Auto) (0-5) /HPF Urine RBC (Auto) (0-2) /HPF U Epithel Cells (Auto) (FEW) /HPF Urine Bacteria (Auto) (NEGATIVE) /HPF Urine Mucus (Auto) (NEGATIVE) /HPF Urine Culture Reflexed (NO) Urine Glucose (NEGATIVE) mg/dL Urine Opiates Level NEGATIVE (NEGATIVE) Ur Methadone NEGATIVE (NEGATIVE) Urine Barbiturates NEGATIVE (NEGATIVE) Ur Phencyclidine (PCP) NEGATIVE (NEGATIVE) Urine Amphetamine NEGATIVE (NEGATIVE) U Benzodiazepine Level NEGATIVE (NEGATIVE) Urine Cocaine NEGATIVE (NEGATIVE) Urine Marijuana (THC) NEGATIVE (NEGATIVE) Ethyl Alcohol (0-10) mg/dL 08/27/20 08/27/20 08/27/20 Range/Units 16:57 14:55 14:55 WBC (4.0-10.5) K/mm3 RBC (4.1-5.4) M/mm3 Hgb (12.0-16.0) gm/dl Hct (35-47) % MCV (78-100) fl MCH (26-32) pg MCHC (32-36) g/dl RDW (11.5-14.0) % Plt Count (150-450) K/mm3 MPV (7.5-11.0) fl Segmented Neutrophils (36.0-66.0) % Band Neutrophils (0.0-2.0) % Lymphocytes (Manual) (24-44) % Monocytes (Manual) (0.0-12.0) % Eosinophils (Manual) (0.00-3.0) % Platelet Estimate (NORMAL) RBC Morphology D-Dimer (215-500) ng/mL Puncture Site LEFT RADIAL pCO2 36 (35-45) mmHg pO2 65 L (75-100) mmHg Base Excess -6.2 L (-2.0-2.0) O2 Saturation 90.7 L (94-100) g/dF ABG pH 7.33 L (7.35-7.45) ABG HCO3 19.0 L (22-28) ABG O2 Sat (Measured) 92.5 L (95-100) % Justin Test YES A-a Gradient 603 a/A Ratio 0.10 Hemoglobin 14.3 Carboxyhemoglobin 1.2 (0.0-6.9) % THgb Methemoglobin 0.7 L (1.4-1.5) % Temperature 37.0 C POC O2 Flow Rate 100 % Sodium (137-145) mmol/L Potassium 4.4 (3.5-5.1) mmol/L Chloride (98-107) mmol/L Carbon Dioxide (22-30) mmol/L Anion Gap (5-15) MEQ/L BUN (7-17) mg/dL Creatinine (0.52-1.04) mg/dL Estimated GFR ML/MIN Glucose (74-106) mg/dL Lactic Acid 10.0 H (0.4-2.0) Calcium (8.4-10.2) mg/dL Magnesium (1.6-2.3) mg/dL Total Bilirubin (0.2-1.3) mg/dL AST (14-36) U/L ALT (0-35) U/L Alkaline Phosphatase (38-126) U/L Creatine Kinase (30-135) U/L Troponin I (0.000-0.034) ng/mL NT-Pro-B Natriuret Pep (0-900) pg/mL Serum Total Protein (6.3-8.2) g/dL Albumin (3.5-5.0) g/dL Urine Color EDOUARD (YELLOW) Urine Appearance CLOUDY (CLEAR) Urine pH 5.0 (5-6) Ur Specific [place] 1.021 (1.005-1.025) Urine Protein >=500 (Negative) Urine Ketones NEGATIVE (NEGATIVE) Urine Blood SMALL (0-5) Rishi/ul Urine Nitrite NEGATIVE (NEGATIVE) Urine Bilirubin NEGATIVE (NEGATIVE) Urine Urobilinogen 2 (0-1) mg/dL Ur Leukocyte Esterase NEGATIVE (NEGATIVE) Urine WBC (Auto) 11-15 (0-5) /HPF Urine RBC (Auto) 3-5 (0-2) /HPF U Epithel Cells (Auto) RARE (FEW) /HPF Urine Bacteria (Auto) MODERATE (NEGATIVE) /HPF Urine Mucus (Auto) SLIGHT (NEGATIVE) /HPF Urine Culture Reflexed YES (NO) Urine Glucose >=500 (NEGATIVE) mg/dL Urine Opiates Level (NEGATIVE) Ur Methadone (NEGATIVE) Urine Barbiturates (NEGATIVE) Ur Phencyclidine (PCP) (NEGATIVE) Urine Amphetamine (NEGATIVE) U Benzodiazepine Level (NEGATIVE) Urine Cocaine (NEGATIVE) Urine Marijuana (THC) (NEGATIVE) Ethyl Alcohol (0-10) mg/dL 03/14/20 03/14/20 03/14/20 Range/Units 14:51 14:51 14:51 WBC (4.0-10.5) K/mm3 RBC (4.1-5.4) M/mm3 Hgb (12.0-16.0) gm/dl Hct (35-47) % MCV (78-100) fl MCH (26-32) pg MCHC (32-36) g/dl RDW (11.5-14.0) % Plt Count (150-450) K/mm3 MPV (7.5-11.0) fl Segmented Neutrophils (36.0-66.0) % Band Neutrophils (0.0-2.0) % Lymphocytes (Manual) (24-44) % Monocytes (Manual) (0.0-12.0) % Eosinophils (Manual) (0.00-3.0) % Platelet Estimate (NORMAL) RBC Morphology D-Dimer 6669 H* (215-500) ng/mL Puncture Site pCO2 (35-45) mmHg pO2 (75-100) mmHg Base Excess (-2.0-2.0) O2 Saturation (94-100) g/dF ABG pH (7.35-7.45) ABG HCO3 (22-28) ABG O2 Sat (Measured) (95-100) % Justin Test A-a Gradient a/A Ratio Hemoglobin Carboxyhemoglobin (0.0-6.9) % THgb Methemoglobin (1.4-1.5) % Temperature C POC O2 Flow Rate % Sodium 141 (137-145) mmol/L Potassium 4.0 (3.5-5.1) mmol/L Chloride 105 (98-107) mmol/L Carbon Dioxide 16 L* (22-30) mmol/L Anion Gap 24.2 H (5-15) MEQ/L BUN 26 H (7-17) mg/dL Creatinine 0.99 (0.52-1.04) mg/dL Estimated GFR 58.8 ML/MIN Glucose 385 H (74-106) mg/dL Lactic Acid (0.4-2.0) Calcium 9.8 (8.4-10.2) mg/dL Magnesium 2.1 (1.6-2.3) mg/dL Total Bilirubin 0.70 (0.2-1.3) mg/dL AST 116 H (14-36) U/L ALT 48 H (0-35) U/L Alkaline Phosphatase 97 (38-126) U/L Creatine Kinase 26 L (30-135) U/L Troponin I 0.016 (0.000-0.034) ng/mL NT-Pro-B Natriuret Pep 300 (0-900) pg/mL Serum Total Protein 6.5 (6.3-8.2) g/dL Albumin 3.9 (3.5-5.0) g/dL Urine Color (YELLOW) Urine Appearance (CLEAR) Urine pH (5-6) Ur Specific [place] (1.005-1.025) Urine Protein (Negative) Urine Ketones (NEGATIVE) Urine Blood (0-5) Rishi/ul Urine Nitrite (NEGATIVE) Urine Bilirubin (NEGATIVE) Urine Urobilinogen (0-1) mg/dL Ur Leukocyte Esterase (NEGATIVE) Urine WBC (Auto) (0-5) /HPF Urine RBC (Auto) (0-2) /HPF U Epithel Cells (Auto) (FEW) /HPF Urine Bacteria (Auto) (NEGATIVE) /HPF Urine Mucus (Auto) (NEGATIVE) /HPF Urine Culture Reflexed (NO) Urine Glucose (NEGATIVE) mg/dL Urine Opiates Level (NEGATIVE) Ur Methadone (NEGATIVE) Urine Barbiturates (NEGATIVE) Ur Phencyclidine (PCP) (NEGATIVE) Urine Amphetamine (NEGATIVE) U Benzodiazepine Level (NEGATIVE) Urine Cocaine (NEGATIVE) Urine Marijuana (THC) (NEGATIVE) Ethyl Alcohol < 10 (0-10) mg/dL 03/14/20 Range/Units 14:51 WBC 17.2 H (4.0-10.5) K/mm3 RBC 4.56 (4.1-5.4) M/mm3 Hgb 14.2 (12.0-16.0) gm/dl Hct 46.9 (35-47) % MCV 102.9 H (78-100) fl MCH 31.1 (26-32) pg MCHC 30.3 L (32-36) g/dl RDW 14.7 H (11.5-14.0) % Plt Count 159 (150-450) K/mm3 MPV 13.1 H (7.5-11.0) fl Segmented Neutrophils 70 H (36.0-66.0) % Band Neutrophils 1 (0.0-2.0) % Lymphocytes (Manual) 24 (24-44) % Monocytes (Manual) 4 (0.0-12.0) % Eosinophils (Manual) 1 (0.00-3.0) % Platelet Estimate NORMAL (NORMAL) RBC Morphology NORMAL D-Dimer (215-500) ng/mL Puncture Site pCO2 (35-45) mmHg pO2 (75-100) mmHg Base Excess (-2.0-2.0) O2 Saturation (94-100) g/dF ABG pH (7.35-7.45) ABG HCO3 (22-28) ABG O2 Sat (Measured) (95-100) % Justin Test A-a Gradient a/A Ratio Hemoglobin Carboxyhemoglobin (0.0-6.9) % THgb Methemoglobin (1.4-1.5) % Temperature C POC O2 Flow Rate % Sodium (137-145) mmol/L Potassium (3.5-5.1) mmol/L Chloride (98-107) mmol/L Carbon Dioxide (22-30) mmol/L Anion Gap (5-15) MEQ/L BUN (7-17) mg/dL Creatinine (0.52-1.04) mg/dL Estimated GFR ML/MIN Glucose (74-106) mg/dL Lactic Acid (0.4-2.0) Calcium (8.4-10.2) mg/dL Magnesium (1.6-2.3) mg/dL Total Bilirubin (0.2-1.3) mg/dL AST (14-36) U/L ALT (0-35) U/L Alkaline Phosphatase (38-126) U/L Creatine Kinase (30-135) U/L Troponin I (0.000-0.034) ng/mL NT-Pro-B Natriuret Pep (0-900) pg/mL Serum Total Protein (6.3-8.2) g/dL Albumin (3.5-5.0) g/dL Urine Color (YELLOW) Urine Appearance (CLEAR) Urine pH (5-6) Ur Specific [place] (1.005-1.025) Urine Protein (Negative) Urine Ketones (NEGATIVE) Urine Blood (0-5) Rishi/ul Urine Nitrite (NEGATIVE) Urine Bilirubin (NEGATIVE) Urine Urobilinogen (0-1) mg/dL Ur Leukocyte Esterase (NEGATIVE) Urine WBC (Auto) (0-5) /HPF Urine RBC (Auto) (0-2) /HPF U Epithel Cells (Auto) (FEW) /HPF Urine Bacteria (Auto) (NEGATIVE) /HPF Urine Mucus (Auto) (NEGATIVE) /HPF Urine Culture Reflexed (NO) Urine Glucose (NEGATIVE) mg/dL Urine Opiates Level (NEGATIVE) Ur Methadone (NEGATIVE) Urine Barbiturates (NEGATIVE) Ur Phencyclidine (PCP) (NEGATIVE) Urine Amphetamine (NEGATIVE) U Benzodiazepine Level (NEGATIVE) Urine Cocaine (NEGATIVE) Urine Marijuana (THC) (NEGATIVE) Ethyl Alcohol (0-10) mg/dL - Progress Progress: improved Progress Note: 03/15/20 07:44 Patient transferred to [facility] for further evaluation and treatment. Clinical impression as below. Patient septic hypotensive bilateral PEs. Antibiotics to cover suspected superimposed bacterial pneumonia. Decadron administered. Heparin administered to cover A. fib with RVR and pulmonary emboli. Pressures administered for blood pressure support. Family updated. Patient transferred to [facility]. 03/15/20 07:52 Counseled pt/family regarding: lab results, diagnosis, need for follow-up, rad results - Departure Departure Disposition: Transfer Clinical Impression: COVID-19, Hypoxia, Atrial fibrillation with RVR, Bilateral pneumonia, Pulmonary emboli, Leukocytosis, Dehydration, High anion gap metabolic acidosis, Proteinuria, UTI (urinary tract infection), Renal cyst, Fatty liver, Septic shock Condition: Stable Critical Care Time: Yes Critical Care Time(excluding separately billable procedures): Critical 105-134 mins Referrals: TAYLOR COLE [Primary Care Provider] -
[2020-03-14 15:01] LABS: A-aADO2 603; ABG HEMOGLOBIN 14.3; ABG POTASSIUM 4.4 (3.5-5.1); ABG SITE LEFT RADIAL; ALLEN TEST OK? YES; ARTERIAL BLD GAS O2 SATURATION 92.5 % (95-100); ARTERIAL BLOOD GAS BASE EXCESS -6.2 (-2.0-2.0); ARTERIAL BLOOD GAS FIO2 100 %; ARTERIAL BLOOD GAS PCO2 36 mmHg (35-45); ARTERIAL BLOOD GAS PO2 65 mmHg (75-100); ARTERIAL BLOOD GAS pH 7.33 (7.35-7.45); CARBOXYHEMOGLOBIN 1.2 % THgb (0.0-6.9); HGB O2 SAT 90.7 g/dF (94-100); Methhemoglobin 0.7 % (1.4-1.5)
--- NOTE | 2020-03-14 15:30 | XRAY ---
Indication: Short of breath. Covid 19 positive. Comparison: March 04, 2020. Portable chest again demonstrates patchy bilateral airspace disease minimally improved in the right mid to upper lung with remaining lungs unchanged. Heart and mediastinal structures within normal limits. No new cardiopulmonary abnormalities.
[2020-03-14 15:32] LABS: Hematocrit 46.9 % (35-47); Hemoglobin 14.2 gm/dl (12.0-16.0); Mean Cell Volume 102.9 fl (78-100); Mean Corpuscular Hemoglobin 31.1 pg (26-32); Mean Corpuscular Hgb Concent. 30.3 g/dl (32-36); Mean Platelet Volume 13.1 fl (7.5-11.0); Platelet Count 159 K/mm3 (150-450); Red Blood Count 4.56 M/mm3 (4.1-5.4); Red Cell Distribution Width 14.7 % (11.5-14.0); White Blood Count 17.2 K/mm3 (4.0-10.5)
[2020-03-14 15:43] LABS: SGPT/ALT 48 U/L (0-35)
[2020-03-14 15:45] LABS: ALBUMIN 3.9 g/dL (3.5-5.0); ALKALINE PHOSPHATASE 97 U/L (38-126); ANION GAP 24.2 MEQ/L (5-15); BLOOD UREA NITROGEN 26 mg/dL (7-17); CHLORIDE 105 mmol/L (98-107); CK-Creatinine Phosphokinase 26 U/L (30-135); Calcium 9.8 mg/dL (8.4-10.2); Creatinine 1 0.99 mg/dL (0.52-1.04); EST GLOMERULAR FILTRATION RATE 58.8 ML/MIN; Glucose 385 mg/dL (74-106); MAGNESIUM 2.1 mg/dL (1.6-2.3); NT PRO BNP 300 pg/mL (0-900); SGOT/AST 116 U/L (14-36); SODIUM 141 mmol/L (137-145); Total Protein 6.5 g/dL (6.3-8.2)
[2020-03-14 15:53] LABS: Carbon Dioxide 16 mmol/L (22-30); ETHYL ALCOHOL < 10 mg/dL (0-10)
[2020-03-14 16:10] LABS: BAND 1 % (0.0-2.0); Eosinophil 1 % (0.00-3.0); Lymphocytes 24 % (24-44); Monocyte 4 % (0.0-12.0); Neutrophils 70 % (36.0-66.0); Platelet Estimate NORMAL (NORMAL); Total Cells Counted 100
[2020-03-14] MEDS ORDERED: Zosyn 3.375 GM Vial 3.375 GM in Sodium Chloride 100ML MINI-BAG PLUS 100 ML IV ONE (16:11)
[2020-03-14] MEDS ORDERED: VANCOMYCIN 1 GRAM/200 ML BAG 1 GM/200 ML PIGGYBACK IV SCH (16:15)
[2020-03-14] MEDS ORDERED: Zosyn 3.375 GM Vial IV ONE (16:28)
[2020-03-14] MEDS ORDERED: Sodium Chloride 100ML MINI-BAG PLUS 100 ML IV ONE (16:29)
[2020-03-14] MEDS ORDERED: VANCOMYCIN 1 GRAM/200 ML BAG 1 GM/200 ML PIGGYBACK IV ONE (16:29)
[2020-03-14] MEDS ORDERED: Heparin 5000 UNITS/0.5 ML (HIGH RISK MED) ONE (17:03)
[2020-03-14 17:04] LABS: Appearance CLOUDY (CLEAR); Bacteria MODERATE /HPF (NEGATIVE); Bilirubin NEGATIVE (NEGATIVE); Blood SMALL Ery/ul (0-5); Epithelial Cells RARE /HPF (FEW); Glucose >=500 mg/dL (NEGATIVE); Ketones NEGATIVE (NEGATIVE); Leukocyte Esterase NEGATIVE (NEGATIVE); Mucus SLIGHT /HPF (NEGATIVE); Nitrite NEGATIVE (NEGATIVE); Protein,Urine Dip >=500 (Negative); Specific Gravity 1.021 (1.005-1.025); Urobilinogen 2 mg/dL (0-1)
[2020-03-14] MEDS ORDERED: Sodium Chloride 0.9% 1000 ML 1,000 ML ONE ×2 (17:04→19:26)
[2020-03-14] MEDS ORDERED: Heparin 25,000 units/D5W 250ML PREMIX 25,000 UNITS/250 ML BAG IV ONE (17:04)
--- NOTE | 2020-03-14 17:05 | XRAY ---
Indication: Short of breath. Elevated d-dimer. Covid 19 positive. Multiple contiguous axial images obtained through the chest using 100 cc of Isovue 370 contrast and PE protocol. Comparison: None There is good opacification of the pulmonary arteries. Extensive pulmonary emboli in the distal main pulmonary arteries right greater than left extending into all lobar branches. Heart is not enlarged. Aorta is normal in course and caliber. No pathologic mediastinal/hilar lymphadenopathy. Lungs inflated with diffuse patchy airspace disease, left greater than right. No consolidation or effusion. Bony thorax intact with mild degenerative changes throughout the spine. Limited upper abdomen demonstrates mild fatty liver and 2.8 cm left mid renal cyst. Impression: 1. Extensive bilateral pulmonary emboli as detailed. 2. Diffuse bilateral patchy airspace disease without consolidation/effusion. 3. Incidental fatty liver and left renal cysts. Comment: Telephone report given to Dr. Ferrera at 1700 hrs. on March 14, 2020.
--- NOTE | 2020-03-14 17:06 | XRAY ---
Indication: Syncope. Fall. Multiple contiguous axial images obtained through the head without contrast. Comparison: None Age-appropriate global atrophy and minimal periventricular degenerative micro-ischemia bilaterally. No acute intracranial hemorrhage, abnormal extra-axial fluid collection, or mass effect. Fourth ventricle is midline without hydrocephalus. Bony calvarium intact. Visualized paranasal sinuses are clear. Partial opacification of the left mastoid air cells. Impression: Nonacute senile brain. Partial opacification left mastoid air cells presumed inflammatory.
[2020-03-14 17:16] LABS: Amphetamine,Urine NEGATIVE (NEGATIVE); Barbiturate,Urine NEGATIVE (NEGATIVE); Benzodiazepine,Urine NEGATIVE (NEGATIVE); Cocaine,Urine NEGATIVE (NEGATIVE); Methadone,Urine NEGATIVE (NEGATIVE); Opiate,Urine NEGATIVE (NEGATIVE); PCP,Urine NEGATIVE (NEGATIVE); THC,Urine NEGATIVE (NEGATIVE)
[2020-03-14] MEDS ORDERED: solu-CORTEF 100MG IV ONE (17:28)
[2020-03-14] MEDS ORDERED: LEVOPHED 4 MG/4 ML 4,000 MCG in Dextrose 5%/Water IV Soln. 500 ML 500 ML IV PRN (17:29)
[2020-03-14] MEDS ORDERED: Sodium Chloride 0.9% 1000 ML 1,000 ML IV SCH (19:30)
[2020-03-14 20:31] VITALS: BP 141/99; PULSE 97
[2020-03-15 07:47] VITALS: O2SAT 94
== END 2020-03-14 20:35 | disposition short-term general hospital (02) ==
LOC: ED 14:27
DX: U07.1 COVID-19 (principal); R09.02 Hypoxemia; I48.91 Unspecified atrial fibrillation; J18.9 Pneumonia, unspecified organism; I26.99 Other pulmonary embolism without acute cor pulmonale; D72.829 Elevated white blood cell count, unspecified; E86.0 Dehydration; E87.2 Acidosis; R80.9 Proteinuria, unspecified; N39.0 Urinary tract infection, site not specified; N28.1 Cyst of kidney, acquired; K76.0 Fatty (change of) liver, not elsewhere classified; R65.21 Severe sepsis with septic shock; I10 Essential (primary) hypertension; E11.9 Type 2 diabetes mellitus without complications; Z79.4 Long term (current) use of insulin; Z79.899 Other long term (current) drug therapy
CPT/HCPCS: 36000; 36415; 36600; 51702; 70450; 71045; 71260; 80053; 80307; 81001; 82375; 82550; 82803; 82962; 83605; 83735; 83880; 84484; 85025; 85379; 87040; 87077; 87086; 87186; 93005; 93041; 96360; 96365; 96366; 96367; 96368; 96374; 96375; 99285; 99291; 99292; G0480; J1100; J1644; J2405; J3370